=== PATIENT | female | born 1935 | race Caucasian/White ===

== ENCOUNTER 2016-09-29 18:03 | Emergency (ER) | payer MEDICARE ==
[~2016-09-29] VITALS: Ht 152.4 cm; Wt 58.1 kg
[2016-09-29 18:30] VITALS: BP 160/84
[2016-09-29] MEDS ORDERED: OXYMETAZOLINE 0.05% NASAL SPRAY 30ML BOTTLE. NS ONE (19:30)
[2016-09-29 19:58] LABS: INR 2.9 (0.8-1.1); PROTHROMBIN TIME PATIENT 28.9 SEC (11.7-14.0)
--- NOTE | 2016-09-29 20:13 | PHYS DOC ---
Past Medical History Past Medical History: A-Fib, CHF, Heart Disease, Other Additional Past Medical Histor: Shingles, Past Surgical History: Hip Replacement, Hysterectomy, Oophorectomy, Pacemaker, Other Additional Past Surgical Histo: Bilat oophrectomy after cysts,Cardioversions, Skin Charles.,Cataracts Alcohol Use: None Drug Use: None Adult General Chief Complaint Chief Complaint: NOSEBLEED HPI HPI Patient is a 80 year old female in town from [place] with her friend, who had a nosebleed at a local restaurant. Patient states she's never had a nosebleed in her life. She doesn't know what started it. She does take warfarin. She recently had an INR that was 2.7. She has not had a dose adjustment since her INR was stable since last month. She applied ice and pressure in her nosebleed stopped and has not started again. She denies bleeding anywhere else, denies bloody stools, black stools, blood in her urine, or bleeding from her gums. PCP in [place] Review of Systems Review of Systems HENT: She has had a clear runny nose and some nasal congestion for a week or more Respiratory: Denies cough or shortness of breath [] Cardiovascular: Denies chest pain GI: Denies bloody or black stools stools : Denies hematuria [] Current Medications Current Medications Current Medications Medications (Trade) Dose Ordered Sig/Risa Start Time Stop Time Status Last Admin Dose Admin Oxymetazoline HCl (Afrin) 2 spray 1X ONCE 09/29/16 19:30 09/29/16 19:41 DC 09/29/16 19:54 2 SPRAY Allergies Allergies Allergies Coded Allergies Type Severity Reaction Last Updated Verified cephalexin Allergy Intermediate 09/29/16 Yes Physical Exam Physical Exam Constitutional: Well developed, well nourished, no acute distress, non-toxic appearance. Alert, mentating normally, vital signs are stable. HENT: Normocephalic, atraumatic, bilateral external ears normal, oropharynx moist, no oral exudates,. Nose has moderate congestion and redness of the septum and mucosa. There is no specific sign of where the bleeding occurred. There are no blood clots. Eyes: PERRLA, EOMI, conjunctiva normal, no discharge. [] Neck: Normal range of motion, no tenderness, supple, no stridor. [] Cardiovascular:Heart rate regular rhythm, no murmur [] Lungs & Thorax: Bilateral breath sounds clear to auscultation [] Skin: Warm, dry, no erythema, no rash. No significant excessive bruising. Extremities: No tenderness, no cyanosis, no clubbing, ROM intact, no edema. [] Neurologic: Alert and oriented X 3, normal motor function, normal sensory function, no focal deficits noted. [] Current Patient Data Vital Signs Vital Signs Date Time Temp Pulse Resp B/P (MAP) Pulse Ox O2 Delivery O2 Flow Rate FiO2 09/29/16 18:30 97.5 79 20 160/84 (109) 95 Room Air 97.5 Lab Values Laboratory Tests Test 09/29/16 19:18 Prothrombin Time 28.9 SEC (11.7-14.0) H Prothrombin Time INR 2.9 (0.8-1.1) H EKG EKG [] Radiology/Procedures Radiology/Procedures [] Course & Med Decision Making Course & Med Decision Making Pertinent Labs and Imaging studies reviewed. (See chart for details) 80-year-old female who takes warfarin in with a nosebleed that occurred spontaneously and has stopped, has not bled in the ED. The patient is stable. I am not able to see an area to treat in her anterior nose but she does have generalized congestion and mucosal swelling. She was given a dose of Afrin in each nostril in the ED. We discussed treatment of nosebleed and she was given 2 nose clamps to take with her. INR here is therapeutic. No dose change in her warfarin. The patient is stable for discharge. See instructions for plan. [] Dragon Disclaimer Dragon Disclaimer This electronic medical record was generated, in whole or in part, using a voice recognition dictation system. Departure Departure Impression: Primary Impression: Right-sided nosebleed Disposition: 01 HOME, SELF-CARE Condition: STABLE Referrals: UNKNOWN PCP NAME (PCP) Patient Instructions: Nosebleed, [id number] Additional Instructions: Take Claritin 1 daily for possible seasonal allergy symptoms Also, purchase [id number] Flonase or generic and use as directed for seasonal allergy symptoms. If nosebleed recurs, use a spray of Afrin nasal spray into that side of your nose. If that doesn't stop it, place the clamp for 15 minutes. If you can't get a nosebleed to stop, return to an emergency department. INR today was 2.9 ARIAS POWERS MD Sep 29, 2016 20:13
== END 2016-09-29 20:21 | disposition home or self-care (01) ==
LOC: ER 18:03
DX: R04.0 Epistaxis (principal); I48.91 Unspecified atrial fibrillation; I50.9 Heart failure, unspecified; Z95.0 Presence of cardiac pacemaker; Z79.01 Long term (current) use of anticoagulants; Z88.1 Allergy status to other antibiotic agents
CPT/HCPCS: 36415; 85610; 99283